=== PATIENT | male | born 1995 | race African-American/Black ===

== ENCOUNTER 2022-09-07 19:53 | Emergency (ER) | payer OTHER ==
[~2022-09-07] VITALS: Ht 190.5 cm; Wt 113.4 kg
[2022-09-07 19:57] VITALS: BP 143/80; O2SAT 97
--- NOTE | 2022-09-07 20:08 | NUR ---
[id number] from rehab ctr, OD from weed possibly laced with fent, Given narcan 4mg IN x2, zofran 4mg IVP [employer] C[employer], pt awake/alert on triage. PATIENT AGITIATED ASKING FOR GIRLFRIEND TO COME IN.
--- NOTE | 2022-09-07 20:12 | NUR ---
IV removed. Catheter intact and site benign. Pressure and 4x4 applied to site. No bleeding noted.
--- NOTE | 2022-09-07 20:12 | NUR ---
PATIENT AGITIATED, LEFT WITHOUT BEING SEEN BY
== END 2022-09-07 20:19 | disposition left against medical advice (07) ==
LOC: ER 20:01
DX: T40.2X1A Poisoning by other opioids, accidental (unintentional), initial encounter (principal); Z53.21 Procedure and treatment not carried out due to patient leaving prior to being seen by health care provider; Y92.89 Other specified places as the place of occurrence of the external cause